=== PATIENT | female | born 1950 | race Caucasian/White ===

== ENCOUNTER 2019-01-01 18:58 | Inpatient (IN) ==
[2019-01-01] MEDS ORDERED: ASPIRIN PO ONE (19:16)
[2019-01-01] MEDS ORDERED: ASPIRIN PR ONE (19:16)
[2019-01-01 20:55] LABS: BASO# 0.03 X1000 (0.0-0.2); BASO% 0.2 % (0.0-0.8); HEMATOCRIT 39.3 % (37.0-47.0); HEMOGLOBIN 13.3 g/dL (12.0-16.0); IMM GRAN# 0.04 X1000 (0.0-0.04); IMM GRAN% 0.3 % (0.0-0.5); LYMPH# 2.65 X1000 (1.2-3.4); MCH 26.6 PG (27-31); MCHC 33.8 g/dL (33-37); MCV 78.6 FL (81-99); MONO# 1.55 X1000 (0.11-0.59); MONO% 12.9 % (1.7-9.3); NEUT# 7.78 X1000 (1.4-6.5); NEUT% 64.6 % (42.2-75.2); PLT 400 X1000 (130-400); RDW 15.1 % (11.5-14.5); WBC 12.05 X1000 (4.8-10.8)
[2019-01-01 21:03] LABS: INR 0.96; PROTIME 13.5 Seconds (11.0-16.0)
[2019-01-01 21:04] LABS: PTT 29.4 Seconds (22.3-41.8)
[2019-01-01 21:17] LABS: ALB/GLOB RATIO 1.1; ALBUMIN 4.3 g/dL (3.5-5.0); CALCIUM 9.5 mg/dL (8.8-10.2); CREATININE 1.9 mg/dL (0.5-0.9); POTASSIUM 5.6 mmol/L (3.5-5.1); TOTAL BILIRUBIN 0.23 mg/dL (0.20-1.00); TOTAL PROTEIN 8.3 g/dL (6.3-8.3)
[2019-01-01] MEDS ORDERED: D50W SYRINGE IV ONE (21:24)
[2019-01-01] MEDS ORDERED: HUMULIN R IV ONE (21:24)
[2019-01-01] MEDS ORDERED: SODIUM BICARBONATE 8.4% IV ONE (21:24)
[2019-01-01] MEDS ORDERED: NS 1,000 ML IV ONE (21:24)
[2019-01-01] MEDS ORDERED: VELTASSA PO ONE (21:25)
[2019-01-01 21:33] LABS: URINE SOURCE CLEAN CATCH
[2019-01-01 21:39] LABS: BILIRUBIN URINE NEGATIVE (NEGATIVE); BLOOD URINE NEGATIVE (NEGATIVE); COLOR STRAW; GLUCOSE URINE 300 mg/dL (NEGATIVE); KETONE URINE NEGATIVE (NEGATIVE); LEUKOCYTES URINE LARGE (NEGATIVE); NITRITE URINE NEGATIVE (NEGATIVE); PROTEIN URINE NEGATIVE (NEGATIVE); SP GRAVITY URINE 1.004; TURBIDITY URINE CLEAR (CLEAR); UR EPITHELIAL CELLS <10 /HPF (<10); URINE BACTERIA 2+ /HPF; URINE RBC <10 /HPF (<10); URINE WBC TNTC /HPF (<10); UROBILINOGEN URINE NORMAL (NORMAL)
--- NOTE | 2019-01-01 22:00 | PROVIDER DOCUMENTATION ---
This chart was entered by Deepika Fuentes Scribe, acting as scribe for Severiano Henderson MD. HPI-General Adult - General Chief Complaint: Abnormal Lab[s] Stated Complaint: [facility] sent-[facility]normal [facility] Time Seen by Provider: 01/01/19 19:08 Source: patient Allergies/Adverse Reactions: Patient Allergies Allergy/AdvReac Type Severity Reaction Status Date / Time Penicillins Allergy ANAPHYLAXIS Verified 11/19/13 15:41 red dye Allergy ANAPHYLAXIS Verified 11/19/13 15:43 sulfamethoxazole Allergy ANAPHYLAXIS Verified 11/19/13 15:43 [From Bactrim] trimethoprim [From Bactrim] Allergy ANAPHYLAXIS Verified 11/19/13 15:43 yellow dye Allergy ANAPHYLAXIS Verified 11/19/13 15:43 cephalexin monohydrate * AdvReac RASH Verified 11/19/13 15:43 [From Keflex] Home Medications: Home Medication List Medication Instructions Recorded Confirmed Last Taken Type Amlodipine [Norvasc] 10 mg PO DAILY 11/19/13 11/19/13 11/19/13 08:00 History Cetirizine HCl [Zyrtec] 5 mg PO DAILY PRN 11/19/13 11/19/13 11/19/13 08:00 History - History of Present Illness -Gen Adult Nature of Presenting Problems: pt is a 68 yr old female presenting [facility]. pt reports she went [facility] this [facility] where she had labs drawn, pt was called this afternoon and told to go to the nearest ER due to elevated potassium levels. pt reports over the last week she has had intermittent weakness, shakiness, left jaw and chest heaviness, shortness of breath and nausea. pt reports pain is brief when it comes. pt also reports palpitations at night when lying down. pt admits recent activity increase. Location of Pain/Injury: reports: chest Pain Radiation: reports: jaw Quality of Pain: reports: other (heaviness) Severity: reports: mild Onset/Duration: reports: 1 week ago Timing: reports: intermittent Context/Activities at Onset: reports: light activity Modifying Factors: improves with: nothing Associated Symptoms: reports: chest pain, headaches, nausea, shortness of breath , weakness. denies: dizziness, vomiting Similar Symptoms Previously?: No Recently seen or treated by another doctor?: Yes (seen by Dr Bradley today) Review of Systems - Adult - REVIEW OF SYSTEMS - ADULT Constitutional: reports: no symptoms reported Eyes: reports: no symptoms reported Ears, Nose, Mouth & Throat: reports: no symptoms reported Cardiovascular: reports: chest pain, palpitations. denies: syncope Respiratory: reports: shortness of breath. denies: cough Gastrointestinal: reports: nausea. denies: abdominal pain, vomiting Genitourinary: reports: no symptoms reported Musculoskeletal: reports: no symptoms reported Integumentary: reports: no symptoms reported Neurological: reports: headache/migraines. denies: dizziness/vertigo, loss of balance, numbness, syncope Psychiatric: reports: no symptoms reported Endocrine: reports: no symptoms reported Hematologic/Lymphatic: reports: no symptoms reported Allergic/Immunologic: reports: no symptoms reported All Other Systems: Reviewed and Negative Past History - Adult - PAST MEDICAL HISTORY-ADULT Review of Records: reports: Old Records Reviewed, Nursing Assessment Review, Medications Reviewed, Social history reviewed & non-contributory. Major Childhood Illnesses: reports: denies history Cardiovascular: reports: denies history Respiratory: reports: denies history Gastrointestinal: reports: denies history Obstetrical/Gynecological: reports: denies history Genitourinary: reports: denies history Musculoskeletal: reports: denies history Neurological: reports: denies history Endocrine/Immune: reports: denies history Other Conditions: reports: denies history - IMMUNIZATION STATUS Childhood Immunizations: See Nurse Assessment Flu Vaccine: See Nurse Assessment - FAMILY HISTORY Family History: reviewed, not pertinent - SOCIAL HISTORY Smoking: quit greater than 1 year Living Situation: family Physical Exam-General - PHYSICAL EXAM-ADULT Initial Vital Signs Reviewed: Yes - CONSTITUTIONAL General Appearance: appears well, alert, no apparent distress - EYES Eyes: PERRL/EOMI - HEAD, EARS, NOSE, MOUTH & THROAT HENMT: normocephalic/atraumatic, moist mucous membranes - NECK Neck: non-tender, full range of motion, supple, normal inspection - RESPIRATORY Respiratory: chest non-tender, lungs clear, normal breath sounds, no pleuratic chest pain, no respiratory distress, no accessory muscle use - CARDIOVASCULAR Cardiovascular: normal peripheral pulses, regular rate, rhythm, no edema - GASTROINTESTINAL (ABDOMEN) Abdominal Exam: normal bowel sounds, non tender, soft - LYMPHATIC Lymphatic: no adenopathy - MUSCULOSKELETAL Back Exam: normal inspection, no CVA tenderness, no vertebral tenderness Extremity: normal range of motion, non-tender, normal gait, normal inspection - SKIN Integumentary: normal color, normal turgor, warm/dry - PSYCHIATRIC Psych/Mental Status: normal mood/affect Progress - PLAN OF CARE/RESULTS Progress/Plan/Lab Results: Vital Signs - 8 hr 01/01/19 19:07 Temperature 97.9 F Pulse Rate 83 Respiratory Rate 15 Blood Pressure 120/72 O2 Sat by Pulse Oximetry 100 Orders Category Date Time Status Cardiac Monitoring DIRECTED Care 01/01/19 19:17 Active Oxygen Therapy- ED Nursing DIRECTED Care 01/01/19 19:17 Active Saline Loc NOW Care 01/01/19 19:17 Active CHEST-2 VIEWS [RAD] Stat Exams 01/01/19 19:17 Taken CBC WITH ELECTRONIC DIFF [HEME] Stat Lab 01/01/19 19:17 Uncollected CK PROFILE [SP CHEM] Stat Lab 01/01/19 19:17 Uncollected COMPREHENSIVE METABOLIC PANEL [CHEM] Stat Lab 01/01/19 19:17 Uncollected PRO B-NATRIURETIC PEPTIDE Stat Lab 01/01/19 19:17 Uncollected PROTIME WITH INR [COAG] Stat Lab 01/01/19 19:17 Uncollected PTT [COAG] Stat Lab 01/01/19 19:17 Uncollected TROPONIN T Stat Lab 01/01/19 19:17 Uncollected URINALYSIS W/POSS RFLX CULT [URINALYSIS] Stat Lab 01/01/19 20:03 Uncollected Aspirin Med 01/01/19 19:16 Discontinued 300 mg SC NOW ONE Aspirin Med 01/01/19 19:16 Discontinued 325 mg PO NOW ONE CP/SOB/Palp >45 yrs of Age Stat Oth 01/01/19 19:16 Ordered EKG [EKG] Stat Ther 01/01/19 19:17 Ordered Result Diagrams: 01/01/19 20:23 01/01/19 20:23 - EKG 1 Time of EKG reading by physician:: 20:42 EKG Read and Signed by:: Severiano Henderson EKG Interpretation (*Must complete 3 of following elements*): Abnormal Rate: 76 Rhythm: nsr Kimber[place]: left QRS: LVH (minimal voltage criteria, may be normal varant) - XRAY 1 XRAY Study: Chest Impression: Normal - CONSULTS/PCP/HOSPITALIST Notification #1 *Consult/PCP/Hospitalist*: [place] Time Discussed: 21:55 Consult Disposition: Will see in ED, Admit Departure - Departure Date of Disposition Decision: 01/01/19 Time of Disposition Decision: 21:27 DIAGNOSIS: Hyperkalemia, Acute kidney injury Disposition: ADMITTED INPATIENT 09 Certified Medical Emergency: Emergent Condition: Good Referrals and Follow-Ups: None,PCP [Primary Care Provider] - - Critical Care Note This patient required my direct & personal management of CC.: No Attestation - Physician/ SUJEY Attestation Patient care was provided by Advanced Practice Provider:: No The physician spent face to face time with patient:: Yes Advanced Practice Provider documentation review:: Supervising physician onsite and consulted in the evaluation and care of this patient. The physician did have a face to face encounter with the patient. This chart was documented by the indicated scribe, (Deepika Fuentes, Jenniibcrystal) and accurately reflects the services I performed and decisions made by me, Severiano Henderson MD, as attested by the provider's signature.
--- NOTE | 2019-01-01 22:04 | Diag Imaging Result Doc PS360 ---
EXAM: CHEST-2 VIEWS INDICATION: Chest Tightness TECHNIQUE: 2 views COMPARISON: 08/21/2018 FINDINGS: The lungs are grossly clear. There is no discrete pleural fluid collection or pneumothorax. The cardiomediastinal silhouette and central vasculature are grossly unremarkable. IMPRESSION: No evidence of acute pathology by plain radiograph. Electronically signed by Elio Maria 01/01/2019 10:02 PM
[2019-01-01] MEDS ORDERED: NORVASC PO ONE (23:00)
--- NOTE | 2019-01-01 23:56 | HISTORY AND PHYSICAL ---
PRIMARY CARE PHYSICIAN: Dr. Choco Orozco. REASON FOR ADMISSION: Abnormal labs. HISTORY OF PRESENT ILLNESS: Leonora Marshall is a 68-year-old woman with past medical history of coronary artery disease, status post 4 stents; hypertension; mild CKD per the patient. For the last 1 week she has been feeling a little lightheaded, mildly dyspneic on exertion, having some intermittent nausea. She went to see Dr. Baca, her extension work instructor for routine followup, and he did an EKG in the office and there was something abnormal. He then proceeded to do some blood work. By the time the patient got home, his nurse practitioner contacted her and told her to go to the nearest ER. The patient denies any nausea, vomiting, diarrhea or bleeding from any orifice, any recent change in her medications nor any new cardiorespiratory symptoms. The patient was told that her potassium was 6 and her kidney function was off by the nurse practitioner. Other than that, she denies any PND, orthopnea or leg swelling. She denies any focal neurological complaints or cramping. No ocular complaints. No tremors. No polyuria or polydipsia. REVIEW OF SYSTEMS: Twelve systems were reviewed. Positive findings per HPI. ALLERGIES: Doxycycline, Levaquin, penicillin, cephalosporins, ARB, sulfa, red dye, hydrochlorothiazide. MEDICATIONS: Home medications have not been reconciled. FAMILY HISTORY: No kidney disease, but positive for diabetes and heart disease. SURGICAL HISTORY: Several breast biopsies, all of them negative for malignancy; C-sections; hysterectomy; 4 stents. SOCIAL HISTORY: She does not smoke, drink or use drugs. Lives alone. DIAGNOSTIC DATA: EKG showed normal sinus rhythm with flipped T waves in the high lateral leads, with findings consistent with LVH. The patient has left axis deviation. Chest film: No evidence of any acute pathology. LABORATORY DATA: Sodium 135, potassium 5.6, BUN 58, creatinine 1.8, glucose is 206. PT, PTT are normal. WBCs too numerous to count, and 2+ bacteria noted, glucose 300. PAST MEDICAL HISTORY: Notable for diabetes, heart disease and coronary artery disease. PHYSICAL EXAMINATION: VITAL SIGNS: Blood pressure is 171/84, heart rate 74, respirations 17, temperature is 97.9 degrees. GENERAL: She is a pleasant middle-aged woman, not in acute distress. Alert and oriented x3. Normal mood and affect. HEENT: Head is normocephalic, atraumatic. Eyes: PERRLA, EOMI. She is anicteric and not pale. ENT and oropharyngeal exam is grossly normal. She has some degree of angular stomatitis. No central cyanosis. NECK: Supple. No JVD or carotid bruit. No thyromegaly. She has mildly decreased skin turgor. CHEST: Clear when auscultated. Good air entry in both lung campuzano. CARDIOVASCULAR: First and second heart sounds heard. No gallops, murmurs or rubs. Rhythm is regular. ABDOMEN: Slightly protuberant, soft, nontender. No masses or organomegaly. Decreased bowel sounds. RECTAL: Exam deferred. EXTREMITIES: The patient has good pulse volume distally in all extremities, regular and symmetrical. No edema, clubbing or peripheral cyanosis. NEUROLOGICAL: No gross focal deficits. No tremors. No asterixis. SKIN: Intact. No breakdown, lesions or erythema. MUSCULOSKELETAL: Exam is normal. ASSESSMENT: 1. Acute kidney injury. Probably stage 1 Kidney Disease: Improving Global Outcomes, probably from multifactorial, questionable; medications, probably. 2. Asymptomatic bacteriuria. 3. Hypertension. 4. Coronary artery disease. 5. Type 2 diabetes. 6. Hyperkalemia. PLAN: Measures have been initiated to correct hyperkalemia by using patiromer, IV insulin, dextrose, sodium bicarbonate. We will repeat BUN and creatinine later tonight to see how far this has corrected. If potassium is still elevated, we will repeat treatment with insulin and glucose. Continue with IV fluid resuscitation. Await home medications for reconciliation. I suspect that this is probably medication induced, i.e., from overdiuresis. The patient states that she had to recently double the dose of her Lasix for a few days because she said she had gained significant amount of weight, i.e., greater than 5 pounds. I will not be surprised if she was taking some other potentially nephrotoxic medications which could compound things. We are going to spot sodium, to see if she is prerenal. There is nothing in her history to suggest that she has an obstructive uropathy, so for now we will hold off on a renal sonogram. Regarding her diabetes, A1c will be ordered. She is on sliding scale for now. The ER physician informed me that she was started on Jardiance. Though such empagliflozin, otherwise known as Jardiance, is one of the few medications that has very good cardiovascular and renal outcomes, amongst diabetic medications; however, the tradeoff is some patients have had profound dehydration from this medication due to its mechanism of action and it has put them in renal failure. It is possible this, too, may be contributing to the acute kidney injury that she is experiencing. If she is on this medication, I would suggest discontinuing it. We will be holding this medication until a later time. Blood pressure is mildly elevated. We will recommend resuming home medications. She did mention to me that she was taking amlodipine and we will start this for now, pending her home medications. cc: MD Choco Valdivia MD
[2019-01-02] MEDS ORDERED: NS 1,000 ML IV SCH ×2 (01:23→10:49)
[2019-01-02] MEDS ORDERED: ZOFRAN IV PRN (01:23)
[2019-01-02 02:33] LABS: CALCIUM 9.1 mg/dL (8.8-10.2); CREATININE 1.7 mg/dL (0.5-0.9); POTASSIUM 4.8 mmol/L (3.5-5.1)
[2019-01-02] MEDS: HEPARIN SUBQ SCH ×2 (02:40→12:29)
[2019-01-02] MEDS: HUMALOG SUBQ SCH ×4 (06:43→20:53)
[2019-01-02 06:54] LABS: BASO# 0.03 X1000 (0.0-0.2); BASO% 0.2 % (0.0-0.8); HEMATOCRIT 35.1 % (37.0-47.0); HEMOGLOBIN 11.8 g/dL (12.0-16.0); IMM GRAN# 0.03 X1000 (0.0-0.04); IMM GRAN% 0.2 % (0.0-0.5); LYMPH# 2.39 X1000 (1.2-3.4); LYMPH% 19.3 % (20.5-51.1); MCH 26.7 PG (27-31); MCHC 33.6 g/dL (33-37); MCV 79.4 FL (81-99); MONO% 9.7 % (1.7-9.3); MPV 10.2 FL (7.4-10.4); NEUT# 8.73 X1000 (1.4-6.5); NEUT% 70.6 % (42.2-75.2); PLT 317 X1000 (130-400); RBC 4.42 XMIL (4.2-5.4); RDW 14.9 % (11.5-14.5); WBC 12.38 X1000 (4.8-10.8)
[2019-01-02 07:06] LABS: CALCIUM 9.3 mg/dL (8.8-10.2); CREATININE 1.5 mg/dL (0.5-0.9); MAGNESIUM 2.2 mg/dL (1.5-2.7); POTASSIUM 4.7 mmol/L (3.5-5.1)
[2019-01-02 07:09] LABS: HEMOGLOBIN A1C 8.7 % (4.8-6.0)
--- NOTE | 2019-01-02 07:38 | EKG Report ---
Test Performed on : 01/01/2019 8:30:31 PM Test Reason : HyperKalemia, Blood Pressure : / mmHG Vent. Rate : 076 BPM Atrial Rate : 076 BPM P-R Int : 200 ms QRS Dur : 094 ms QT Int : 370 ms P-R-T Axes : 006 -30 114 degrees QTc Int : 416 ms Normal sinus rhythm. Left axis deviation Minimal voltage criteria for LVH, may be normal variant Possible Anterior infarct , age undetermined T wave abnormality, consider lateral ischemia Abnormal ECG When compared with ECG of 09-MAY-2011 09:56, Vent. rate has increased BY 25 BPM T wave inversion less evident in Lateral leads Unconfirmed Result
--- NOTE | 2019-01-02 10:28 | EKG Report ---
Test Performed on : 01/02/2019 10:15:40 AM Test Reason : Follow up T wave inversion in lateral leads Blood Pressure : / mmHG Vent. Rate : 087 BPM Atrial Rate : 087 BPM P-R Int : 204 ms QRS Dur : 102 ms QT Int : 362 ms P-R-T Axes : 045 -34 112 degrees QTc Int : 435 ms Normal sinus rhythm. with sinus arrhythmia. Left axis deviation ST & T wave abnormality, consider lateral ischemia Abnormal ECG When compared with ECG of 01-JAN-2019 20:30, (Unconfirmed) No significant change was found Confirmed by Sujit DAVIS, Corby Huang ([id number]) on 01/02/2019 5:10:00 PM
--- NOTE | 2019-01-02 11:16 | PROGRESS NOTE ---
DATE: 01/02/2019 INTERVAL HISTORY: Ms. Marshall was admitted for hyperkalemia, lightheadedness, acute kidney injury and intermittent nausea. Apparently, patient has had similar symptoms when she had urinary tract infection early in 2019. SUBJECTIVE: She is feeling slightly better than she did yesterday. She has not been able to come out of bed as yet. Subjectively, she is feeling mild shortness of breath, but denies any other complaints. She states she was having some chest heaviness since about 1 week ago, and had seen her heart doctor. On admission her EKG did have T-wave inversions on lateral leads, but troponins were negative. We discussed about exam findings. We also discussed about waiting for urine culture results, starting her on antibiotics. Patient's daughter is at bedside. The patient is really willing to go home. I explained to her about her clinical condition and my recommendation, and she agreed to stay back. VITALS: Currently, temperature 98.5 degrees, pulse 78, respiratory rate 16, blood pressure 133/49, saturating 94% on room air.General: On physical examination, not in acute distress, except mild shortness of breath. Oral cavity is moist. Lungs: Air entry bilaterally equal. No wheeze or rhonchi. She has inspiratory crackles bilateral infrascapular region. Heart: S1, S2 normal. Systolic crescendo-decrescendo murmur affecting right second intercostal space. No rub or gallop. Abdomen: Soft. Hepatojugular reflex is negative. Extremities: No lower extremity edema. LABS: Suggestive of persistent leukocytosis, microcytic anemia, normal platelet count, improving hyponatremia, resolved hyperkalemia, improving now what appears to be acute kidney injury, resolved hypoglycemia. MICROBIOLOGY: Urine culture has gram-negative zuhair. Further lab test results from office visits have been requested from her regular doctor, as well as furnace attendant. IMAGING: Chest x-ray had no evidence of acute pathology. ASSESSMENT AND PLAN: 1. Acute kidney injury on chronic kidney disease due to use of diuretics, ibuprofen with hyperkalemia due to use of potassium chloride and spironolactone. Decrease intravenous fluid rate since her lab abnormality has been improving. I am holding her diuretics and will add as tolerated. 2. Probable acute cystitis: Pyuria with gram-negative rods, multiple UTIs at least twice since early 2018. She states that considering her being on diuretics, it is hard for her to say that she has any increase in the frequency, though she does have some irritation around her urethra. She has been feeling the same recently as she did on previous urinary tract infection. She has been listed to be allergic to multiple medications and previously needed carbapenem because of drug resistance. I will start her on intravenous carbapenem until we await final urine culture results. I will follow up with complete blood count as well. 3. History of coronary artery disease status post multiple stent, the last 1 being in 2017, and history of congestive heart failure and essential hypertension. Continue home amlodipine, carvedilol, clonidine. Also continue her home aspirin and prasugrel with coenzyme Q-10. Her EKG has T-wave inversions in lead 1 and aVL which are unchanged from yesterday's EKG. I do not have baseline EKG to compare. Her troponin was negative. 4. History of non-insulin dependent diabetes mellitus. I will continue her on glipizide and sliding scale insulin. I am holding her empagliflozin considering her recurrent urinary tract infection. I discussed with her about discussing with her regular doctor about discontinuing it if she continues to have multiple urinary tract infections. 5. Others. Continue heparin subcutaneous for deep venous thrombosis prophylaxis, pantoprazole for chronic gastroesophageal reflux disease, and albuterol ipratropium nebulization for gastroesophageal reflux disease-induced shortness of breath, which is her home medication. DISPOSITION: I will continue to monitor patient inside the hospital as I await recovery of acute kidney injury, urine culture results. Plan of care discussed with her and her family at bedside. All of their questions have been answered. cc: MD CHALINO Royal
[2019-01-02] MEDS: DUONEB (A & A) INH PRN ×2 (12:00→19:10)
[2019-01-02] MEDS: ASPIRIN EC PO SCH (12:30)
[2019-01-02] MEDS: INVANZ 0.5 GM in NS 50 ML IV SCH (12:30)
[2019-01-02] MEDS: EFFIENT PO SCH (12:30)
[2019-01-02] MEDS ORDERED: TYLENOL PO PRN (15:18)
[2019-01-02] MEDS ORDERED: XYLOCAINE 5% OINT TOP PRN (15:18)
[2019-01-02] MEDS: PROTONIX PO SCH (20:43)
[2019-01-02] MEDS: NORVASC PO SCH (20:43)
[2019-01-02] MEDS: COREG PO SCH (20:53)
[2019-01-02] MEDS: CATAPRES PO SCH (20:54)
[2019-01-03] MEDS ORDERED: INVANZ 1 GM/NS 1 GM/50 ML IVPB IV SCH
[2019-01-03] MEDS: HEPARIN SUBQ SCH ×2 (01:30→15:27)
[2019-01-03 06:48] LABS: BASO# 0.03 X1000 (0.0-0.2); BASO% 0.3 % (0.0-0.8); HEMATOCRIT 34.1 % (37.0-47.0); HEMOGLOBIN 11.3 g/dL (12.0-16.0); IMM GRAN# 0.03 X1000 (0.0-0.04); IMM GRAN% 0.3 % (0.0-0.5); LYMPH# 2.45 X1000 (1.2-3.4); LYMPH% 28.5 % (20.5-51.1); MCH 26.7 PG (27-31); MCHC 33.1 g/dL (33-37); MCV 80.4 FL (81-99); MONO# 1.26 X1000 (0.11-0.59); MONO% 14.7 % (1.7-9.3); MPV 9.8 FL (7.4-10.4); NEUT# 4.82 X1000 (1.4-6.5); NEUT% 56.2 % (42.2-75.2); PLT 304 X1000 (130-400); RBC 4.24 XMIL (4.2-5.4); WBC 8.59 X1000 (4.8-10.8)
[2019-01-03] MEDS: HUMALOG SUBQ SCH ×2 (06:56→11:15)
[2019-01-03 07:02] LABS: CALCIUM 9.1 mg/dL (8.8-10.2); CREATININE 1.1 mg/dL (0.5-0.9); POTASSIUM 4.3 mmol/L (3.5-5.1)
[2019-01-03] MEDS: DUONEB (A & A) INH PRN ×2 (08:01→16:08)
[2019-01-03] MEDS ORDERED: FERROUS SULFATE PO SCH (09:00)
[2019-01-03] MEDS ORDERED: COENZYME Q10 PO SCH (09:00)
[2019-01-03 09:09] LABS: URINE SOURCE CLEAN CATCH
[2019-01-03 09:13] LABS: BILIRUBIN URINE NEGATIVE (NEGATIVE); BLOOD URINE NEGATIVE (NEGATIVE); COLOR STRAW; GLUCOSE URINE >1000 mg/dL (NEGATIVE); KETONE URINE NEGATIVE (NEGATIVE); LEUKOCYTES URINE SMALL (NEGATIVE); NITRITE URINE NEGATIVE (NEGATIVE); PROTEIN URINE TRACE mg/dL (NEGATIVE); SP GRAVITY URINE 1.007; TURBIDITY URINE CLEAR (CLEAR); UROBILINOGEN URINE NORMAL (NORMAL)
[2019-01-03 09:14] LABS: UR EPITHELIAL CELLS <10 /HPF (<10); URINE BACTERIA NEGATIVE /HPF; URINE RBC <10 /HPF (<10); URINE WBC <10 /HPF (<10)
[2019-01-03] MEDS: EFFIENT PO SCH (10:09)
[2019-01-03] MEDS: CATAPRES PO SCH (10:09)
[2019-01-03] MEDS: NORVASC PO SCH (10:09)
[2019-01-03] MEDS: ASPIRIN EC PO SCH (10:10)
[2019-01-03] MEDS: PROTONIX PO SCH (10:10)
[2019-01-03] MEDS: COREG PO SCH (10:10)
[2019-01-03] MEDS: INVANZ 0.5 GM in NS 50 ML IV SCH (11:13)
[2019-01-03] MEDS ORDERED: LONITEN PO SCH (13:15)
[2019-01-03] MEDS ORDERED: NS 250 ML ONE (14:13)
[2019-01-03 16:08] VITALS: BP 155/58
--- NOTE | 2019-01-03 20:20 | DISCHARGE SUMMARY ---
ADMISSION DATE: 01/02/2019 DISCHARGE DATE: 01/03/2019 DISCHARGE DISPOSITION: Home with IV antibiotics for which patient would come to [facility] in emergency room on weekends and infusion center during weekdays. DISCHARGE CONDITION: Hemodynamically stable, alert, oriented x3. She is denying any nausea, vomiting, abdominal pain, chest pain, or shortness of breath. DISCHARGE DIAGNOSES: 1. Acute kidney injury due to use of diuretics and Ibuprofen. 2. Hyperkalemia due to the use of spironolactone and outpatient potassium chloride. 3. Acute cystitis with Serratia. OTHER DIAGNOSES: 1. History of coronary artery disease, status post multiple stents, last in 2017. 2. History of congestive heart failure. 3. Essential hypertension. 4. Noninsulin dependent diabetes mellitus. 5. Multiple urinary tract infections since she has been on empagliflozin since July 2018. 6. Chronic gastroesophageal reflux disease. 7. Gastroesophageal reflux disease related bronchospasm and shortness of breath. 8. History of multiple drug allergies. DISCHARGE MEDICATIONS: She has been provided basic metabolic panel slip, carvedilol 25 mg b.i.d., clonidine 0.1 mg b.i.d., Co Q 10, 50 mg daily, aspirin 81 mg daily, Prazopill 10 mg daily, ferrous sulfate 325 mg daily, glipizide 5 mg b.i.d., furosemide 40 mg daily, she was advised to discuss with her regular doctor about increasing or decreasing the dose based on kidney function, minoxidil 2.5 mg b.i.d., amlodipine 5 mg b.i.d., pantoprazole 40 mg b.i.d., empagliflozin, metformin one tablet b.i.d., she was advised to discuss with outpatient provider about discontinuing empagliflozin considering multiple UTIs, cetirizine 10 mg daily. FOLLOWUP: 1. Outpatient Infectious Disease for antibiotics through PICC line. 2. Outpatient screw machine operator single spindle for dosing of Lasix and spironolactone. 3. Patient's regular doctor to discuss about this hospital admission. 4. Establish care with an lpc to discuss about multiple hospital admissions. PHYSICAL EXAMINATION: Vital signs: At the time of discharge, temperature 97.8, pulse 71, respiratory rate 16, blood pressure 160/57, saturating 93% on room air. General: Does not appear in any acute distress. HEENT: Oral cavity is moist. Lungs: Air entry bilaterally equal. No wheeze, rhonchi, or crackles, except mild in infrascapular region. Cardiovascular: S1, S2 normal. Systolic crescendo/decrescendo murmur affecting the right second intercostal space. No rub or gallop. Abdomen: Soft. No hepatojugular reflux. Extremities: No lower extremity edema. LABS AT THE TIME OF DISCHARGE: WBC 8.5, hemoglobin 11.3, platelets 304. Potassium 4.3, which was 5.6 at the time of admission. BUN 25 and creatinine of 1.1, which were 58 and 1.9 at the time of admission. Glucose 188. Significant microbiology during hospital admission: Urine culture growing Serratia marcescens more than 100,000 colony forming units, which was sensitive to third generation cephalosporin, levofloxacin, and Bactrim. However, considering patient's penicillin, cephalosporin, and sulfa allergy it was decided that patient would be discharged on intravenous ertapenem every 24 hours. CONSULTATIONS DURING HOSPITAL ADMISSION: Infectious Disease and PICC nurse team. HOSPITAL COURSE SUMMARY: Ms. Marshall is a 68-year-old lady with past medical history of coronary artery disease, who came in with chief complaints of lightheadedness, intermittent nausea, and her outpatient provider had performed blood tests in which she was found to have hyperkalemia with potassium of 5.8, so she was advised to come to the emergency room. In the emergency room, she was found to have acute kidney injury, hyperkalemia, and pyuria, so she was admitted for further management. It was thought that patient's acute kidney injury and hyperkalemia were in the siting of use of Lasix, spironolactone, potassium chloride, and Ibuprofen for osteoarthritis. These were held and she was started on intravenous fluids following which her acute kidney injury nearly resolved, with her baseline creatinine of 0.9. At the time of discharge she was resumed only on her Lasix for congestive heart failure and she was advised to discuss with her outpatient doctor about resuming spironolactone as tolerated in the future. Also, the patient was complaining of intermittent nausea and malaise and dizziness at the time of presentation. She had exact similar symptoms when she had acute urinary tract infection twice earlier in 2019. Urine culture grew Serratia. She was treated with intravenous ertapenem, which she was tolerating well. Infectious Disease was consulted considering her multiple drug allergies and the plan was to get a PICC line and discharge her home. The patient wanted to come to the hospital every day to get the antibiotics. TIME SPENT: More than 30 minutes was spent in discharging this patient. I am awaiting PICC placement and outpatient antibiotic setup, which I am informed will be done today and patient would follow up with her regular providers. cc: Ciro Villa MD [email or web address]
--- NOTE | 2019-01-03 20:34 | INFECTIOUS DISEASE CONSULT REP ---
DATE: 01/03/2019 CONCLUSION: The patient has had in the past few months the onset of recurrent urinary tract infections which are symptomatic. RECOMMENDATIONS: Currently the patient has a Serratia urinary tract infection and the plan is to treat the patient with Invanz 1 g IV daily for 14 days because the patient has multiple allergies to many other antibiotics. The patient will be coming to the outpatient clinic and getting her medication. She will be treated for 2 weeks. I have given the patient an appointment to come to my office in 3 weeks at which time a repeat urine culture will be obtained and if it is negative, then the PICC which we are having put in her arm today can be removed. My plan will be to treat the patient with Invanz 1 g IV daily for 2 weeks and repeat her urinary culture in 1 week after stopping Invanz. If it is negative, then the patient's PICC will be removed. If it is positive, she will have additional treatment. I have asked the patient to check with her primary care physician, Dr. Orozco, namely about using vaginal estrogen and possibly getting off of Jardiance because it can be associated with urinary tract infections. The patient may need another medication. DISCUSSION: The patient tells me that she was admitted to the hospital. She had some abnormal laboratory studies done and that was one reason for admission. She also was having low back pain, dysuria, and fever and as mentioned above, her urine grew Serratia marcescens. The patient told me that since the beginning of 2018, she started having recurrent urinary tract infections, which she never had before. It should be noted that the patient has fairly recently been started on Jardiance and a side effect from that medication can be that the patient has urinary tract infections. The patient was initially seeing another Infectious Disease specialist, namely Dr. Lundberg in [place]. Dr. Ingram check the patient's immunoglobulin levels, IgA was 801, IgG was 1386. Therefore, the patient does not have an immunoglobulin deficiency and she would not be a candidate to get IVIG. The patient tells me that sometime in August and September she was in [facility] and they did studies on her as regarding her kidneys and why she gets recurrent urinary tract infections. We have requested that the radiographic studies be faxed to my office. I asked the patient to fully pass her urine and then we obtained a bladder scan to check for postvoid residual urine. The postvoid residual urine amount was 116 mL which is actually very small for that and therefore, the patient does not have urinary retention. PRESENT ILLNESS: Patient's laboratory studies show a CBC with a white count of 8590, hemoglobin 11.3, platelet count 304,000, creatinine is 1.1. GFR is 49. Urine culture grew Serratia. Chest x-ray showed no acute disease. PAST MEDICAL HISTORY/REVIEW OF SYSTEMS: Head, eyes, ears, nose and throat: No trouble seeing or hearing. She does not have any drainage from her nose or ears. Neck: No stiffness. Respiratory: The patient does have episodes where she sometimes is coughing and sometimes has dyspnea. Cardiac: No chest pain or palpitations. GI: No nausea, vomiting, or diarrhea. : See present illness. Neurologic: No seizures. No loss of motor or sensory function. Bone, joints, muscles: No swollen joints or muscle aching. Integument: No rashes. 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 She delivered all 3 of her children by C- section. She has had a hysterectomy and bilateral salpingo-oophorectomy. PREVIOUS HOSPITALIZATIONS AND OPERATIONS: Patient has had 3 C-sections, a hysterectomy and a bilateral salpingo-oophorectomy. She has also had coronary artery stents placed. She has had upper GI bleeding. She had an admission due to allergic reaction to a medication. She has had benign tumors removed from her jaw, breasts, and knee. MEDICAL DISEASES: Positive for diabetes mellitus, hypertension, multiple drug allergies, and coronary artery disease. INFECTIOUS DISEASE HISTORY: Positive for recurrent urinary tract infection. She has had rheumatic fever, pneumonia and sinusitis. FAMILY HISTORY: Positive for diabetes mellitus, hypertension, myocardial infarction. SOCIAL HISTORY: [place] is . She does not smoke or drink or abuse drugs. She has worked at [employer] and she is retired from that place. ALLERGIES: The patient has multiple drug allergies. They include she is allergic to penicillin, cephalosporin antibiotics and Levaquin. She is also allergic to Bactrim and all the allergies the manifestation is anaphylaxis. From [facility] she had an allergy and it says it was a rash. MEDICINES: Taken at home include amlodipine, Ecotrin, carvedilol, Zyrtec, Catapres, Synjardy 12.11/999 mg tablet, ferrous sulfate, Lasix, glipizide, minoxidil, Protonix, Effient and Co-Q10. PHYSICAL EXAMINATION: Vital Signs: Temperature is 97.8 degrees, pulse 70, respirations 18, blood pressure 168/57. General: This is a healthy-appearing elderly female. She is in no acute distress. Head/eyes/ears/nose/throat: She can hear my spoken words and see near objects. There is no drainage from the nose or ears. Her tongue does not have any white coating. Neck: No meningismus. Lungs: Clear to auscultation. Cardiovascular: Regular heart rate. Abdomen: Soft and nontender. Extremities: The patient does have some leg edema but no erythema. Neurologic: Patient is alert. She ambulates without difficulty. Her memory as regarding her medical history is intact. Thank you for the consult. cc: Shyam Cade MD
[2019-01-04] MEDS ORDERED: LASIX PO SCH (09:00)
== END 2019-01-03 17:04 | disposition home or self-care (01) | DRG 683 ==
LOC: ED 18:58 → 4N 01-02 00:27 → SUATTDRO 01-02 00:27
PROVIDERS: ATTEND Internal Medicine
CPT/HCPCS: 36569; 71020; 71046; 80048; 80053; 81001; 82550; 82948; 83036; 83735; 83880; 84300; 84484; 85025; 85610; 85730; 87077; 87088; 87186; 93005; 93010; 94640; 94761; 96361; 96374; 96375; 99285; A9270; J1335; J1815; J7030; J7050; XXXXX

== ENCOUNTER 2019-04-02 09:54 | Observation (INO) ==
[2019-04-02] MEDS ORDERED: NS 500 ML IV ONE (10:50)
--- NOTE | 2019-04-02 11:34 | Diag Imaging Result Doc PS360 ---
EXAM: CHEST-2 VIEWS 04/02/2019 HISTORY: short of breath TECHNIQUE: PA and lateral chest COMMENT: There is a PICC line on the left with its tip in the superior vena cava. There is blunting of the posterior costophrenic angles. This was not the case on 01/01/2019. The heart size appears larger and there is some increase in interstitial opacity in the lung bases particularly in the left lower lobe. The pulmonary vascularity is also more prominent. IMPRESSION: Bilateral pleural effusions and mild interstitial pulmonary edema. Electronically signed by Bobby Duke 04/02/2019 11:32 AM
[2019-04-02 11:38] LABS: BASO# 0.07 X1000 (0.0-0.2); BASO% 0.6 % (0.0-0.8); HEMATOCRIT 38.6 % (37.0-47.0); HEMOGLOBIN 12.7 g/dL (12.0-16.0); IMM GRAN# 0.04 X1000 (0.0-0.04); IMM GRAN% 0.3 % (0.0-0.5); LYMPH# 1.99 X1000 (1.2-3.4); MCHC 32.9 g/dL (33-37); MCV 82.1 FL (81-99); MONO# 0.93 X1000 (0.11-0.59); MONO% 7.5 % (1.7-9.3); MPV 10.6 FL (7.4-10.4); NEUT# 9.44 X1000 (1.4-6.5); NEUT% 75.6 % (42.2-75.2); PLT 300 X1000 (130-400); RDW 14.2 % (11.5-14.5); WBC 12.47 X1000 (4.8-10.8)
[2019-04-02 12:13] LABS: AGAP 17; ALBUMIN 3.9 g/dL (3.5-5.0); ALKALINE PHOSPHATASE 133 U/L (32-104); BUN 11 mg/dL (8-22); C REACTIVE PROT QUANT 24.79 mg/L (0.00-5.00); CALCIUM 8.8 mg/dL (8.8-10.2); CHLORIDE 106 mmol/L (98-107); CK PROFILE 52 U/L (24-173); COSMO 293; CREATININE 0.7 mg/dL (0.5-0.9); ESTIMATED GFR > 60; GLUCOSE 282 mg/dL (70-104); GOT 26 U/L (10-30); GPT 11 U/L (10-36); LIPASE 15 U/L (13-60); MAGNESIUM 1.8 mg/dL (1.5-2.7); POTASSIUM 3.9 mmol/L (3.5-5.1); SODIUM 142 mmol/L (136-145); TCO2 19 mmol/L (25-35); TOTAL BILIRUBIN 0.38 mg/dL (0.20-1.00); TOTAL PROTEIN 7.8 g/dL (6.3-8.3)
[2019-04-02 13:20] LABS: URINE SOURCE CLEAN CATCH
[2019-04-02 13:22] LABS: BILIRUBIN URINE NEGATIVE (NEGATIVE); BLOOD URINE TRACE (NEGATIVE); COLOR YELLOW; GLUCOSE URINE 200 mg/dL (NEGATIVE); KETONE URINE NEGATIVE (NEGATIVE); LEUKOCYTES URINE SMALL (NEGATIVE); NITRITE URINE NEGATIVE (NEGATIVE); PH URINE 5.5; PROTEIN URINE 100 mg/dL (NEGATIVE); SP GRAVITY URINE 1.011; TURBIDITY URINE CLEAR (CLEAR); UROBILINOGEN URINE NORMAL (NORMAL)
[2019-04-02 13:24] LABS: UR EPITHELIAL CELLS <10 /HPF (<10); URINE BACTERIA NEGATIVE /HPF; URINE RBC <10 /HPF (<10); URINE WBC <10 /HPF (<10)
[2019-04-02 13:26] LABS: INR 1.1; PROTIME 14.4 Seconds (11.0-16.0)
--- NOTE | 2019-04-02 13:26 | EKG Report ---
Test Performed on : 04/02/2019 1:12:58 PM Test Reason : palpitations Blood Pressure : / mmHG Vent. Rate : 069 BPM Atrial Rate : 069 BPM P-R Int : 214 ms QRS Dur : 102 ms QT Int : 444 ms P-R-T Axes : 050 -15 122 degrees QTc Int : 475 ms Sinus rhythm. with 1st degree AV block. Cannot rule out Anterior infarct , age undetermined ST & T wave abnormality, consider lateral ischemia Abnormal ECG When compared with ECG of 02-JAN-2019 10:15, Nonspecific T wave abnormality now evident in Inferior leads Unconfirmed Result
[2019-04-02] MEDS ORDERED: NITROGLYCERIN TOP ONE (13:41)
[2019-04-02] MEDS ORDERED: LASIX IV ONE (13:41)
--- NOTE | 2019-04-02 13:56 | PROVIDER DOCUMENTATION ---
This chart was entered by Latonya Montanez Scribe, acting as scribe for Russell Gaines MD. HPI-General Adult - General Chief Complaint: Allergic Reaction Stated Complaint: ALLERGIC REACTION Time Seen by Provider: 04/02/19 10:16 Source: patient, family (daughter) Allergies/Adverse Reactions: Patient Allergies Allergy/AdvReac Type Severity Reaction Status Date / Time doxycycline Allergy ANAPHYLAXIS Verified 04/02/19 10:51 hydrochlorothiazide Allergy ANAPHYLAXIS Verified 04/02/19 10:51 [From Hyzaar] levofloxacin [From Levaquin] Allergy ANAPHYLAXIS Verified 04/02/19 10:51 losartan [From Hyzaar] Allergy ANAPHYLAXIS Verified 04/02/19 10:51 Penicillins Allergy ANAPHYLAXIS Verified 04/02/19 10:51 red dye Allergy ANAPHYLAXIS Verified 04/02/19 10:51 sulfamethoxazole Allergy ANAPHYLAXIS Verified 04/02/19 10:51 [From Bactrim] trimethoprim [From Bactrim] Allergy ANAPHYLAXIS Verified 04/02/19 10:51 yellow dye Allergy ANAPHYLAXIS Verified 04/02/19 10:51 aztreonam [From Azactam] AdvReac Unknown Verified 04/02/19 10:51 cephalexin monohydrate * AdvReac RASH Verified 04/02/19 10:51 [From Keflex] Home Medications: Home Medication List Medication Instructions Recorded Confirmed Last Taken Type Cetirizine HCl [Zyrtec] 10 mg PO DAILY PRN 11/19/13 04/02/19 04/02/19 History Amlodipine [Norvasc] 5 mg PO BID 01/02/19 04/02/19 04/02/19 History Aspirin [Ecotrin] 81 mg PO DAILY 01/02/19 04/02/19 04/02/19 History Carvedilol 25 mg PO BID 01/02/19 04/02/19 04/02/19 History Clonidine [Catapres] 0.1 mg PO QHS 01/02/19 04/02/19 04/01/19 History Ferrous Sulfate 325 mg PO DAILY 01/02/19 04/02/19 04/02/19 History Furosemide [Lasix] 20 mg PO BID 01/02/19 04/02/19 04/02/19 History Glipizide 5 mg PO BID 01/02/19 04/02/19 04/02/19 History Minoxidil 2.5 mg PO BID 01/02/19 04/02/19 04/02/19 History Pantoprazole Sodium [Protonix] 40 mg PO BID 01/02/19 04/02/19 04/02/19 History Prasugrel [Effient] 10 mg PO DAILY 01/02/19 04/02/19 04/02/19 History Ubidecarenone [Co Q-10] 50 mg PO DAILY 01/02/19 04/02/19 04/02/19 History Metformin E.r. [Glucophage Xr] 2 tab PO BID 04/02/19 04/02/19 Unknown History - History of Present Illness -Gen Adult Nature of Presenting Problems: 68 yowf presents to the ed with multiple complaints. pt sts yesterday was taking her 8th day of her 5th infusion of abx for UTI and felt like she had an allergic reaction. pt sts "I'm allergic to everything and I know that I don't need this antibiotic, I think I need a different kind" pt sts with infusion yesterday she had sob, palpitation, choking sensation and subjective fever. pt sts sx have since improved but when she called PCP this am they advised to come to ed to be seen. pt on exam has no signs of distress and speaks in complete sentences and has no issue with handling secretions. pt ambulates with a cane and has steady gait. pt is nontoxic in appearance. pt as dr gaines was finshing the exam told him "I felt like I was going into shock yesterday but I'm glad I'm better now, but I'm still sick" Location of Pain/Injury: reports: none Pain Radiation: reports: no radiation Quality of Pain: reports: none Severity: reports: mild Onset/Duration: reports: 24 hours ago Timing: reports: gone now Context/Activities at Onset: reports: other (suggest a reaction to infusion) Modifying Factors: worse with: nothing Associated Symptoms: reports: EENT symptoms (choking sensation), fever/chills (subjective), malaise, shortness of breath, other (palpitations). denies: arm pain, back/neck pain, chest pain, cough, diaphoresis, diarrhea, headaches, joint pain, loss of appetite, nausea, vomiting, weakness, trouble walking Similar Symptoms Previously?: No Recently seen or treated by another doctor?: Yes Review of Systems - Adult - REVIEW OF SYSTEMS - ADULT Constitutional: reports: see HPI, chills, fever (subjective) Eyes: reports: no symptoms reported Ears, Nose, Mouth & Throat: reports: see HPI, other (choking sensation). denies: mouth/dental pain, mouth swelling, throat pain, throat swelling Cardiovascular: reports: see HPI, palpitations, other (8 pound weight gain in last 2 days). denies: chest pain, syncope Respiratory: reports: see HPI, shortness of breath. denies: cough, wheezing Gastrointestinal: denies: abdominal pain, diarrhea, nausea, vomiting Genitourinary: reports: see HPI, frequent UTI's Musculoskeletal: denies: back pain, neck pain Integumentary: reports: no symptoms reported Neurological: denies: ataxia, dizziness/vertigo, headache/migraines, seizure, slurred speech, syncope, tremors Psychiatric: reports: no symptoms reported Endocrine: reports: no symptoms reported Hematologic/Lymphatic: reports: no symptoms reported Allergic/Immunologic: reports: see HPI, allergic reactions All Other Systems: Reviewed and Negative Past History - Adult - PAST MEDICAL HISTORY-ADULT Review of Records: reports: Old Records Reviewed, Nursing Assessment Review, Medications Reviewed, Social history reviewed & non-contributory. Major Childhood Illnesses: reports: denies history Cardiovascular: reports: CHF, HTN Respiratory: reports: COPD Gastrointestinal: reports: denies history Obstetrical/Gynecological: reports: denies history Genitourinary: reports: chronic UTI's Musculoskeletal: reports: denies history Neurological: reports: denies history Endocrine/Immune: reports: denies history Other Conditions: reports: denies history - PRIOR SURGERIES/PROCEDURES Surgical/Procedure History: reports: appendectomy, hysterectomy, breast - IMMUNIZATION STATUS Childhood Immunizations: See Nurse Assessment Flu Vaccine: See Nurse Assessment - FAMILY HISTORY Family History: reviewed, not pertinent - SOCIAL HISTORY Smoking: quit greater than 1 year Substance Use: none/never Living Situation: family Physical Exam-General - PHYSICAL EXAM-ADULT Initial Vital Signs Reviewed: Yes - CONSTITUTIONAL General Appearance: appears well, alert, no apparent distress (pt on exam sts feels better and sx have resolved but stioll is not feeling perfect), obese, other (nontoxic in appearance) - EYES Eyes: PERRL/EOMI, pink conjunctivae - HEAD, EARS, NOSE, MOUTH & THROAT HENMT: moist mucous membranes - NECK Neck: non-tender, full range of motion, supple, normal inspection - RESPIRATORY Respiratory: chest non-tender, lungs clear, normal breath sounds - CARDIOVASCULAR Cardiovascular: normal peripheral pulses, regular rate, rhythm - CHEST (BREASTS) Chest/Breast: deferred - GASTROINTESTINAL (ABDOMEN) Abdominal Exam: normal bowel sounds, non tender, soft - GENITOURINARY Female Genitalia/Pelvic Exam: deferred Rectal Exam: deferred Hemoccult Exam: deferred - LYMPHATIC Lymphatic: no adenopathy - MUSCULOSKELETAL Back Exam: normal inspection, no CVA tenderness, no vertebral tenderness Extremity: normal range of motion, no pedal edema, no calf tenderness, normal capillary refill, pelvis stable, other (has PICC line in LUE no sign of infection seen) - SKIN Integumentary: normal color, normal turgor, warm/dry - NEUROLOGIC Neurologic: grossly normal, no motor/sensory deficits - PSYCHIATRIC Psych/Mental Status: normal mood/affect, normal thought content, normal thought process, oriented x 3 Progress - PLAN OF CARE/RESULTS Progress/Plan/Lab Results: Vital Signs - 8 hr 04/02/19 10:00 Temperature 97.9 F Pulse Rate 74 Respiratory Rate 16 Blood Pressure 116/77 O2 Sat by Pulse Oximetry 94 L Orders Category Date Time Status Nursing- Obtain EKG once Care 04/02/19 10:48 Active Saline Loc NOW Care 04/02/19 10:48 Active CHEST-2 VIEWS [RAD] Stat Exams 04/02/19 10:50 Ordered C REACTIVE PROT QUANT [CHEM] Stat Lab 04/02/19 10:49 Uncollected CBC WITH ELECTRONIC DIFF [HEME] Stat Lab 04/02/19 10:49 Uncollected CK PROFILE [SP CHEM] Stat Lab 04/02/19 10:49 Uncollected COMPREHENSIVE METABOLIC PANEL [CHEM] Stat Lab 04/02/19 10:50 Uncollected LACTATE, PLASMA [CHEM] Stat Lab 04/02/19 10:49 Uncollected LIPASE [CHEM] Stat Lab 04/02/19 10:49 Uncollected MAGNESIUM [CHEM] Stat Lab 04/02/19 10:49 Uncollected PRO B-NATRIURETIC PEPTIDE Stat Lab 04/02/19 10:49 Uncollected PROTIME WITH INR [COAG] Stat Lab 04/02/19 10:49 Uncollected TROPONIN T Stat Lab 04/02/19 10:49 Uncollected URINALYSIS W/POSS RFLX CULT [URINALYSIS] Stat Lab 04/02/19 10:49 Uncollected 0.9% Sodium Chloride Inj [Ns] 500 ml Med 04/02/19 10:50 Active IV 999 mls/hr EKG [EKG] Stat Ther 04/02/19 10:49 Ordered Result Diagrams: 04/02/19 11:19 04/02/19 11:19 - REASSESSMENT Reassessment #1 Time Reassessed: 13:38 Status: unchanged (I ordered IV lasix, patient initially refused. Long di scussion at bedside, will take IV lasix and nitropaste. Initially wanted transfer to , Dr. Baca, then agreed to be admitted here.) Reassessment #2 Time Reassessed: 13:45 Status: unchanged (Patient has no signs of sepsis, but leukocytosis and elevated CRP) - EKG 1 Time of EKG reading by physician:: 13:27 EKG Read and Signed by:: Russell Gaines EKG Interpretation (*Must complete 3 of following elements*): Abnormal Rate: 69 Rhythm: NSR, first degree AV block [place]: left QRS: Q Waves present (anterior), poor R wave progression, LVH [place] Interval: prolonged ST Wave: non-specific ST changes Prior EKG Comparison: unchanged from prior - XRAY 1 XRAY: Bilateral XRAY Study: Chest Impression: See EMR Report (EXAM: CHEST-2 VIEWS 04/02/2019 HISTORY: short of breath TECHNIQUE: PA and lateral chest COMMENT: There is a PICC line on the left with its tip in the superior vena cava. There is blunting of the posterior costophrenic angles. This was not the case on 01/01/2019. The heart size appears larger and there is some increase in interstitial opacity in the lung bases particularly in the left lower lobe. The pulmonary vascularity is also more prominent. IMPRESSION: Bilateral pleural effusions and mild interstitial pulmonary edema. Electronically signed by Bobby Duke 04/02/2019 11:32 AM 04/02/19 1132 Interpreting Physician: Bobby Duke MD Dictated Date/Time: 04/02/19 1131 cc: Russell Gaines MD; Shyam Cade MD) - CONSULTS/PCP/HOSPITALIST Notification #1 *Consult/PCP/Hospitalist*: dr cade Time Discussed: 13:38 ( ) Reason/Comments: phone consult #2 Consult: hospitalist paged at [phone]. [facility] Time Discussed: 13:55 Reason/Comments: admit to [facility] Consult Disposition: Admit Departure - Departure Date of Disposition Decision: 04/02/19 Time of Disposition Decision: 13:44 DIAGNOSIS: Bilateral pleural effusion Acute exacerbation of congestive heart failure Qualifiers: Heart failure type: combined systolic and diastolic Qualified Code(s): I50.43 - Acute on chronic combined systolic (congestive) and diastolic (congestive) heart failure Disposition: ADMITTED INPATIENT Certified Medical Emergency: Emergent Condition: Fair Referrals and Follow-Ups: Shyam Cade MD [Primary Care Provider] - - Critical Care Note This patient required my direct & personal management of CC.: No Attestation - Physician/ SUJEY Attestation Patient care was provided by Advanced Practice Provider:: No The physician spent face to face time with patient:: Yes Advanced Practice Provider documentation review:: Supervising physician onsite and consulted in the evaluation and care of this patient. The physician did have a face to face encounter with the patient. This chart was documented by the indicated scribe, (Latonya Montanez Scribe) and accurately reflects the services I performed and decisions made by me, Russell Gaines MD, as attested by the provider's signature.
--- NOTE | 2019-04-02 14:51 | HISTORY AND PHYSICAL ---
PRIMARY CARE PHYSICIAN: Dr. Choco Orozco. INFECTIOUS DISEASE: Dr. Shyam Cade. CHIEF COMPLAINT: Shortness of breath, palpitations, a choking sensation and a subjective fever, felt that she might be having an allergic reaction to her IV antibiotics for her recent cystitis with Serratia. HISTORY OF PRESENTING ILLNESS: This is a 68-year-old female who presents to [facility] stating that she was taking her 8th day of her 5th infusion of antibiotics for a UTI/cystitis that grew out a Serratia. She was discharged from this facility on 01/03/2019 with a PICC line and home IV antibiotics. She has multiple allergies but states that she has had some shortness of breath, palpitations, a choking sensation and a subjective fever. The symptoms have improved, but her primary care physician advised her to come to the emergency room to be seen. Her workup showed a white blood cell count of 12.49. Her proBNP was 4066. When she was in the hospital back on 01/01/2019, her proBNP was 559. Her chest x-ray showed bilateral pleural effusions and mild interstitial pulmonary edema, so she will be admitted for further evaluation and treatment. PAST MEDICAL HISTORY: Coronary artery disease status post 4 stents, hypertension, mild chronic kidney disease, congestive heart failure. PAST SURGICAL HISTORY: Several breast biopsies all negative for malignancies, section, hysterectomy and heart stents x4.. FAMILY HISTORY: Positive for diabetes and heart disease. SOCIAL HISTORY: She currently lives alone. Denies any tobacco, alcohol or illicit drug use. ALLERGIES: To doxycycline, Hyzaar, Levaquin, penicillin, red dye, sulfa, yellow dye, Azactam, and Keflex. HOME MEDICATIONS: She takes Norvasc 5 mg p.o. b.i.d., aspirin 81 mg p.o. daily, Coreg 25 mg p.o. b.i.d., cetirizine 10 mg p.o. daily p.r.n., clonidine 0.1 mg p.o. at bedtime, ferrous sulfate 325 mg p.o. daily, Lasix 20 mg p.o. b.i.d. will be held, glipizide 5 mg p.o. b.i.d., metformin 500 mg 2 tablets p.o. b.i.d., minoxidil 2.5 mg p.o. b.i.d., pantoprazole 40 mg p.o. b.i.d., Effient 10 mg p.o. daily and Co-Q10 50 mg p.o. daily. LABORATORY DATA: Showed a white blood cell count of 12.47, hemoglobin 12.7, hematocrit 38.6, and platelets 300,000. PT and INR of 14.4 and 1.10. Sodium 142, potassium 3.9, chloride 106, CO2 19, BUN of 11, creatinine 0.7, glucose 282. Magnesium 1.8. C-reactive protein 24.79. ProBNP of 4066. Cardiac enzyme was negative. Lipase of 15. Plasma lactate 1.9. Urinalysis was negative. IMAGING: Chest x-ray showed bilateral pleural effusions and mild interstitial pulmonary edema. EKG showed sinus rhythm with a first-degree AV block at 69. REVIEW OF SYSTEMS: She denied any fever, chills, blurred vision, dizziness. She was positive for shortness of breath, palpitations, a choking sensation. Denied any abdominal pain, constipation, diarrhea, burning or hurting with urination. PHYSICAL EXAMINATION: VITAL SIGNS: On arrival, she had a temperature of 97.9 degrees, pulse 74, respirations 16, blood pressure 116/77, saturating 94% on room air. GENERAL: This is a 68-year-old female who is lying in the bed and answers questions appropriately. HEENT: Normocephalic and atraumatic. Normal ENT inspection. Oropharynx and nares are clear. EYES: Pupils are equal, round, and reactive to light and accommodation. Extraocular movements are intact. NECK: Normal inspection, normal range of motion. LUNGS: Clear to auscultation bilaterally with equal lung expansion and chest wall movement. HEART: With regular rate and rhythm. No murmurs, rubs, or gallops. ABDOMEN: Soft, nontender, nondistended. Bowel sounds are present x4 quadrants. MUSCULOSKELETAL: She had 5/5 strength x4 extremities. She is noted to have a PICC line in her left upper extremity with no signs of infection noted. NEUROLOGICAL: The cranial nerves 2-12 appear grossly intact. ASSESSMENT: 1. An acute congestive heart failure exacerbation. 2. Hypertension. 3. Current treatment for a cystitis with Serratia, on home IV antibiotic treatment. PLAN: She will be admitted to the medical unit, placed on telemetry. We will do a healthy heart diet. Check an echocardiogram. Apply SCDs for DVT prophylaxis. Continue her home medications. We will place on Lasix 40 mg IV q.12 hours. We will consult Dr. Cade as the patient wants to see him to verify that she is not having an allergic reaction to the Azactam, but I do not see any signs of that at this time. This appears to be a strictly congestive heart failure exacerbation, which is followed by her customer program specialist, Dr. Baca, so further orders after seen by attending and by design sales consultant. Dictated by ENMA Winters for Ciro [facility] MD cc: ENMA Winters MD Alan Walker, MD I agree with most components of history, physical, assessment and plan. A separate addendum has been dictated. [email or web address]
[2019-04-02] MEDS ORDERED: CATAPRES PO ONE (16:57)
[2019-04-02] MEDS ORDERED: COREG PO ONE (16:57)
[2019-04-02] MEDS ORDERED: LONITEN PO ONE (16:58)
[2019-04-02] MEDS ORDERED: ZYRTEC PO PRN (17:15)
[2019-04-02] MEDS ORDERED: ZOFRAN IV PRN (17:15)
[2019-04-02] MEDS: TYLENOL PO PRN (18:02)
[2019-04-02] MEDS: LASIX IV SCH (18:02)
[2019-04-02] MEDS: GLUCOPHAGE XR PO SCH (18:03)
--- NOTE | 2019-04-02 20:44 | HISTORY AND PHYSICAL ---
ADDENDUM: This is an addendum to History and Physical dictated by nurse practitioner. I agree with most components of the history, physical, assessment and plan. In brief, Ms. Marshall is a 68-year-old lady, with past medical history of coronary artery disease requiring stent, multiple, the latest being in 2017, congestive heart failure, multiple drug allergies, essential hypertension, noninsulin dependent diabetes mellitus, recurrent UTI, who comes in with chief complaints of chest tightness and congestion. Apparently, patient was diagnosed with urinary tract infection recently and was getting IV antibiotics through PICC line. She was supposed to complete 14 day IV intravenous aztreonam. Today is day 7 of it. However, since antibiotics were started a week ago, she was feeling funny after each antibiotic infusion. Her funny feeling started getting worse progressively to an extent that yesterday, at 2 p.m. after infusion, she started having congestion of the chest and was feeling short of breath, so she did not take her late night dose. In the morning time when she tried to take her dose, her shortness of breath started getting worse and she was feeling very congested and tight inside the chest. She consulted infectious disease doctor's office and she was advised to come to the hospital as the patient was concerned about a possible allergic reaction. In the emergency room, the chest x-ray had pulmonary vascular congestion and pulmonary edema, so hospitalist team was consulted for further management. At the time of my evaluation, she is feeling slightly better. She is still feeling congested. I discussed with her about her EKG which was normal sinus rhythm, and elevated proBNP. PHYSICAL EXAMINATION: VITAL SIGNS: Temperature 97.7 degrees, pulse 80, respiratory rate 19, and her blood pressure is 204/67. She is saturating 95% on room air. GENERAL: Does not appear in acute distress. ORAL CAVITY: Moist. LUNGS: Air entry bilaterally equal. No wheeze, rhonchi, crackles. CARDIOVASCULAR: S1, S2 normal. No murmur, rub, or gallop. She does have inspiratory crackles in bilateral infrascapular region. ABDOMEN: Soft, nontender. Negative hepatojugular reflex. EXTREMITY: Mild lower extremity edema. NEUROLOGIC: She is alert and oriented x3. LABS: Suggestive of mild leukocytosis. Normal hemoglobin. Normal kidney function. Elevated proBNP. Her initial troponin was negative. MICROBIOLOGY: Urine culture was collected. IMAGING: Chest x-ray had pulmonary vascular congestion and interstitial pulmonary edema. ASSESSMENT: 1. Acute respiratory distress, differential being acute congestive heart failure, hypertensive emergency, others. The suspicion of allergic reaction is less to me. 2. Recurrent urinary tract infection and multiple drug allergies. 3. History of coronary artery disease and congestive heart failure. PLAN: 1. Follow up troponin. 2. Get echocardiogram. 3. She is status post intravenous Lasix. I will resume her on oral Lasix starting tomorrow. 4. I will also consult infectious disease doctor for further antibiotic plan. We may try giving her aztreonam again with premedication of Benadryl to make sure she did not have an allergic reaction. 5. I will resume all of her home antihypertensive medications. 6. Plan of care discussed with the patient, and all of her questions have been answered. cc: Ciro Villa MD
[2019-04-02] MEDS: LONITEN PO SCH (20:49)
[2019-04-02] MEDS: NORVASC PO SCH (20:49)
[2019-04-02] MEDS: CATAPRES PO SCH (20:49)
[2019-04-02] MEDS: PROTONIX PO SCH (20:50)
[2019-04-02] MEDS: GLUCOTROL PO SCH (20:50)
[2019-04-03] MEDS: TYLENOL PO PRN (00:08)
[2019-04-03] MEDS: COREG PO SCH ×3 (00:09→20:53)
[2019-04-03] MEDS: LASIX IV SCH ×2 (06:36→17:15)
[2019-04-03 08:00] LABS: BASO# 0.06 X1000 (0.0-0.2); BASO% 0.6 % (0.0-0.8); HEMATOCRIT 32.4 % (37.0-47.0); HEMOGLOBIN 10.6 g/dL (12.0-16.0); IMM GRAN# 0.02 X1000 (0.0-0.04); IMM GRAN% 0.2 % (0.0-0.5); LYMPH# 2.35 X1000 (1.2-3.4); MCH 27.1 PG (27-31); MCHC 32.7 g/dL (33-37); MCV 82.9 FL (81-99); MONO# 1.09 X1000 (0.11-0.59); MONO% 10.2 % (1.7-9.3); MPV 10.7 FL (7.4-10.4); NEUT# 7.17 X1000 (1.4-6.5); PLT 253 X1000 (130-400); RBC 3.91 XMIL (4.2-5.4); RDW 14.1 % (11.5-14.5); WBC 10.69 X1000 (4.8-10.8)
[2019-04-03 08:28] LABS: AGAP 13; BUN 11 mg/dL (8-22); CALCIUM 8.4 mg/dL (8.8-10.2); CHLORIDE 106 mmol/L (98-107); COSMO 285; CREATININE 0.8 mg/dL (0.5-0.9); ESTIMATED GFR > 60; GLUCOSE 150 mg/dL (70-104); POTASSIUM 2.7 mmol/L (3.5-5.1); SODIUM 142 mmol/L (136-145); TCO2 23 mmol/L (25-35)
[2019-04-03] MEDS: PROTONIX PO SCH ×2 (10:22→20:53)
[2019-04-03] MEDS: EFFIENT PO SCH (10:22)
[2019-04-03] MEDS: COENZYME Q10 PO SCH (10:22)
[2019-04-03] MEDS: GLUCOTROL PO SCH ×2 (10:22→20:53)
[2019-04-03] MEDS: NORVASC PO SCH ×2 (10:22→20:53)
[2019-04-03] MEDS: GLUCOPHAGE XR PO SCH ×2 (10:22→17:15)
[2019-04-03] MEDS: FERROUS SULFATE PO SCH (10:22)
[2019-04-03] MEDS: ASPIRIN EC PO SCH (10:23)
[2019-04-03] MEDS: LONITEN PO SCH ×2 (10:23→20:53)
--- NOTE | 2019-04-03 14:06 | INFECTIOUS DISEASE PROGRESS NO ---
DATE: 04/03/2019 PRESENT ILLNESS: Ms. Marshall has been admitted due to congestive heart failure exacerbation. Yesterday morning she called our office to say she was having heart palpitations after receiving her Azactam, and was continuing to feel poorly with shortness of breath and a "funny feeling" in her heart, as well as fever which she states was around 99 during the week. We told her to go to the ER when she called. She has recently been treated for a Pseudomonas urinary tract infection and is unable to take Levaquin due to anaphylaxis. MEDICATIONS: She has been receiving Azactam 2 g IV every 8 hours which she had received for 8 days when she stopped the medication the day before yesterday, after having heart palpitations. She is currently not on any antibiotics in the hospital. PHYSICAL EXAMINATION: Vital Signs: Temperature is 97.5 degrees, pulse rate 67, respiratory rate 19, blood pressure 166/47, O2 saturation is 92% on room air. General: This is an elderly, obese, chronically ill appearing female. She is sitting up in bed, currently in no acute distress. HEENT: Atraumatic, normocephalic. Oral mucous membranes are pink and moist. Conjunctivae are pink. Neck: Supple. Trachea is midline. Cardiovascular: Heart rate and rhythm are regular. Normal sinus rhythm on the monitor. I did hear a systolic murmur. Respiratory: Lung sounds are clear and diminished to the right lobes with mild crackle noted to the left upper lobe and diminished on the left. No work of breathing is noted at this time. Abdomen: Soft, round, and nontender. Bowel sounds are active. Integumentary: Skin is warm and dry. Neurologic: She is awake, alert, oriented, and able to move around in the bed independently. LABORATORY AND X-RAY: Today her white count is 10.69, hemoglobin 10.6, platelet count 253,000, creatinine is 0.8. Estimated GFR is greater than 60. Yesterday her alkaline phosphatase was 133, total bilirubin 0.38, AST 26, ALT 11. C-reactive protein 24.79. A urinalysis showed no bacteria and less than 10 WBCs. A urine culture is pending with a preliminary report of no growth. Chest x-ray done yesterday shows bilateral pleural effusions and mild interstitial pulmonary edema. ASSESSMENT AND PLAN: Ms. Marshall has had multiple UTIs for which we have treated her since December of this year. Unfortunately, even with the use of vaginal estrogen and negative check for post-void residual, she is continuing to have recurrent urinary tract infections. We suspect this is due to her medications for diabetes such as Jardiance and most recently Synjardy, which excrete excess glucose in the urinary tract, and are predisposing her to multiple UTIs. At this point, there is no fever, and it looks as though there is no bacteria in the urine. The leukocytosis, which was mild on admission, has resolved. At this point, antibiotics are not indicated. We will go ahead and sign off the case but we will be available to see her on an as-needed basis. This plan has been discussed with and recommended by Dr. Cade. COMORBIDITIES: For Ms. Marshall include congestive heart failure, diabetes mellitus, coronary artery disease, and multiple drug allergies. Dictated by ENMA De Santiago for Shyam Cade MD cc: Shyam Cade MD MTDD
[2019-04-03] MEDS: KLOR-CON PO SCH ×2 (17:16→20:53)
[2019-04-03] MEDS: MAG-OX PO SCH ×2 (17:16→20:53)
--- NOTE | 2019-04-03 19:19 | PROGRESS NOTE ---
DATE: 04/03/2019 INTERVAL HISTORY: No acute events overnight. Her urine output is not charted properly, but she states she has been making a good amount of urine, and her shortness of breath has become significantly better. Her urine culture has not shown any growth in the preliminary report and her urinalysis only had small leukocytes, so the Infectious Disease doctor has recommended discontinuing antibiotic. SUBJECTIVE: She is feeling much better today than she did yesterday. VITALS: Temperature 97.8 degrees, pulse 73, respiratory rate 19. Her blood pressure is better, 160/40. She is saturating 93% on room air. PHYSICAL EXAMINATION: General: Does not appear in any acute distress. Oral cavity is moist. Air entry bilaterally equal. No wheeze or rhonchi. She does have inspiratory crackles of bilateral infrascapular region. S1-S2 is normal. No murmur, rub, or gallop. Abdomen: Soft, nontender. Positive hepatojugular reflex. Mild bilateral lower extremity edema. She is alert and oriented x3. LABORATORY AND DIAGNOSTIC DATA: Labs suggestive of normal WBC, normal hemoglobin. Her potassium is 2.7. D-dimer has been ordered. Microbiology, no urine culture. No new chest x-ray. ASSESSMENT AND PLAN: 1. Acute respiratory distress and hypoxia due to acute congestive heart failure as well as hypertensive emergency. Follow up echocardiogram. Change intravenous Lasix to oral Lasix. Continue to monitor BMP for her hypokalemia related to Lasix use, and I will follow up D- dimer. Her troponins were unremarkable and EKG had old ST-T changes. 2. History of coronary artery disease requiring multiple stents, the latest being in 2017, and essential hypertension. Continue home clonidine, amlodipine, aspirin, carvedilol, minoxidil, prasugrel, and follow up echocardiogram results. 3. History of noninsulin-dependent diabetes mellitus. Continue home metformin and glipizide. 4. Disposition. I am awaiting echocardiogram results and D-dimer for her hypoxia, and see how she does on oral Lasix. If she continues to do better, my plan would be to discharge her home likely tomorrow. Plan of care discussed with her. Her questions have been answered. cc: Ciro Villa MD
[2019-04-03] MEDS: CATAPRES PO SCH (20:53)
--- NOTE | 2019-04-04 01:21 | ECHO REPORT ---
ORDER DATE: 04/02/2019 MEASUREMENTS: Left ventricular end-diastolic diameter 4.6. Aortic root 3.2. Left atrium 4.1. SUMMARY: 1. Adequate quality study. 2. Aortic valve is trileaflet and opens normally on 2-dimensional images. Peak gradient across the aortic valve is approximately 15 mmHg. Moderate mitral annular calcification is demonstrated with associated thickening and calcification extending into posterior mitral leaflet with reduced posterior mitral leaflet mobility. Peak diastolic gradient across the mitral valve is 14 mmHg with a mean gradient of 5 mmHg. Calculated mitral valve area by pressure halftime method is 2.5 cm2, suggesting mild mitral stenosis. There is very mild mitral regurgitation. Tricuspid and pulmonic valves are without evidence of structural abnormality with trace tricuspid regurgitation and trace pulmonic insufficiency. Estimated systolic PA pressure by Doppler is 55 mmHg, suggesting moderate pulmonary hypertension. The aortic root is normal in size. 3. Normal left upper chamber size with mild concentric left hypertrophy is demonstrated. There appears to be a muscular band extending from the apex to the basal region of the septum below the aortic valve. Estimated left ventricular ejection fraction is approximately 70%. No regional wall motion abnormalities are evident. Left atrium is mildly enlarged. Right atrium, right ventricle are normal in size with grossly preserved right ventricular systolic function. 4. No pericardial effusion. 5. Appearance of inferior vena cava suggests elevated central venous pressure. CONCLUSIONS: 1. Moderate mitral annular calcification extending into the posterior mitral leaflet with mild mitral stenosis and very mild mitral regurgitation. 2. Trace tricuspid regurgitation with moderate pulmonary hypertension by Doppler. 3. Mild concentric left ventricular hypertrophy with estimated left ventricular ejection fraction at least 70%. 4. Mild left atrial enlargement. 5. Elevated central venous pressure suggested. cc: MD Moon Macario CRNP
[2019-04-04] MEDS: KLOR-CON PO SCH (01:33)
[2019-04-04 07:32] VITALS: BP 166/54
[2019-04-04 07:42] LABS: AGAP 14; BUN 12 mg/dL (8-22); CALCIUM 8.6 mg/dL (8.8-10.2); CHLORIDE 107 mmol/L (98-107); COSMO 284; CREATININE 0.8 mg/dL (0.5-0.9); ESTIMATED GFR > 60; GLUCOSE 152 mg/dL (70-104); POTASSIUM 3.9 mmol/L (3.5-5.1); SODIUM 141 mmol/L (136-145); TCO2 20 mmol/L (25-35)
[2019-04-04] MEDS: ASPIRIN EC PO SCH (08:16)
[2019-04-04] MEDS: FERROUS SULFATE PO SCH (08:17)
[2019-04-04] MEDS: GLUCOTROL PO SCH (08:17)
[2019-04-04] MEDS: EFFIENT PO SCH (08:17)
[2019-04-04] MEDS: LONITEN PO SCH (08:17)
[2019-04-04] MEDS: COREG PO SCH (08:17)
[2019-04-04] MEDS: COENZYME Q10 PO SCH (08:17)
[2019-04-04] MEDS: NORVASC PO SCH (08:18)
[2019-04-04] MEDS: PROTONIX PO SCH (08:18)
[2019-04-04] MEDS: GLUCOPHAGE XR PO SCH (08:18)
[2019-04-04] MEDS: MAG-OX PO SCH (08:18)
[2019-04-04] MEDS ORDERED: LASIX PO SCH (09:00)
--- NOTE | 2019-04-04 14:20 | DISCHARGE SUMMARY ---
ADMISSION DATE: 04/02/2019 DISCHARGE DATE: 04/04/2019 DISCHARGE DISPOSITION: Home. DISCHARGE CONDITION: Hemodynamically stable. She is alert and oriented x3. She is denying any shortness of breath. She is saturating more than 92% on room air. Her urine culture did not have any growth to date. 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 DISCHARGE DIAGNOSES: 1. Acute hypoxic respiratory failure. 2. Acute pulmonary edema and acute congestive heart failure exacerbation. 3. Hypertensive emergency. 4. Hypokalemia. 5. History of recurrent UTI. OTHER DIAGNOSES: 1. History of coronary artery disease with multiple stent in 2017 next essential hypertension History of multiple drug allergy next history of [id number] diabetes mellitus. DISCHARGE MEDICATION: Clonidine 0.1 mg at nighttime, carvedilol 25 mg b.i.d., CoQ10 50 mg daily, aspirin 81 mg daily, prasugrel 10 mg daily, ferrous sulfate 325 mg daily, glipizide 5 mg b.i.d., metformin extended release 1000 mg b.i.d., furosemide 20 mg b.i.d., minoxidil 2.5 mg b.i.d., amlodipine 5 mg b.i.d., pantoprazole 40 mg b.i.d., cetirizine 10 mg daily. VITALS: At the time of discharge, temperature 97.5 degrees, pulse 64, respiratory rate 18, blood pressure 160/50, saturating 94% on room air. PHYSICAL EXAMINATION: General: Does not appear in acute distress. Oral cavity is moist. Lungs: Air entry bilaterally equal. No wheeze, rhonchi, crackles. Cardiovascular: S1, S2 normal. No murmur, rub, or gallop. Abdomen: Soft, nontender. Extremity: Mild bilateral lower extremity edema. She is alert and oriented x3. SIGNIFICANT LABS: During hospital admission and discharge, WBC is 10.6, hemoglobin 10.6, platelets 253,000. Potassium is 3.9, magnesium 1.7, BUN 12, creatinine 0.8. Urinalysis did not have any WBCs. Urine culture did not have any pathologic growth. SIGNIFICANT IMAGING: During hospital course, she had moderate mild mitral annular calcification. Echocardiogram had moderate mitral annular calcification extending into posterior mitral leaflet with mild mitral stenosis and very mild mitral regurgitation. Trace tricuspid regurgitation. Mild left ventricle hypertrophy with ejection fraction of 70%. Mild left atrial enlargement and elevated central venous pressure. Chest x-ray on admission had bilateral pleural effusions. Mild interstitial pulmonary edema. Cardiovascular electrocardiogram had sinus rhythm with first-degree AV block. HOSPITAL COURSE SUMMARY: Ms. Marshall is a 68-year-old lady with past medical history of multiple drug allergies and recurrent UTI, who presented on 04/02/2019 with chief complaints of shortness of breath, palpitation, and choking sensation in the center of the chest. Apparently, she was recently diagnosed with another episode of UTI and had been receiving IV aztreonam through left arm PICC line and she thought that she was developing an allergic reaction to that. She had completed 7 of 14 days of her IV aztreonam already. With her chest congestion symptoms, she contacted Infectious Disease doctor's office who had recommended going to the emergency room. In the emergency room she was hemodynamically stable except she was found to have oxygen saturation on room air to be 85%, so hospitalist team was consulted for further management. She was also found to have elevated proBNP of 4000. Chest x-ray had pulmonary vascular congestion, acute pulmonary edema and bilateral pleural effusions. She was started on IV diuresis and most of her home medications were resumed. However, she was not started on antibiotics. Her urinalysis did not have any more pyuria and urine culture did not show any pathologic growth, so infectious disease had recommended stopping antibiotics altogether. With IV diuresis, she improved and later on it was changed to oral diuretics. She will be discharged on oral Lasix. She was advised to take 10 mEq of potassium every day and follow up with repeat BMP within 5 to 7 days and discuss further Lasix dosing with her heart doctor. More than 30 minutes were spent in discharging this patient. Plan of care were discussed with her extensively and all of her questions were satisfactorily answered. cc: MD CHALINO Royal
== END 2019-04-04 09:56 | disposition home or self-care (01) ==
LOC: ED 09:54 → 3N 17:03 → INTOOBSV 17:03
PROVIDERS: ATTEND Internal Medicine